=== PATIENT | female | born 1990 | race American Indian/Alaskan Native ===

== ENCOUNTER 2018-07-15 19:47 | Emergency (ER) | payer SELFPAY ==
[~2018-07-15] VITALS: Ht 157.5 cm; Wt 81.6 kg
[2018-07-15 20:20] VITALS: BP_SYST 130
--- NOTE | 2018-07-15 20:20 | NUR ---
Pt placed to ER bed 07, to gown. Pt c/o vaginal spotting x 1 week with mild abdominal cramping. Pt states that she experiences "slightly spotting" one time each night, light pink to light brown in color. Pt states that she is and was seen by OB 2 weeks ago, but was unable to determine gestational age. Pt states that her LMP was 06/22/2018. No c/o pain or discomfort at this time.
--- NOTE | 2018-07-15 20:30 | NUR ---
Dr. Carrion at bedside.
[2018-07-15 21:16] LABS: BASOPHILS % (AUTO) 0.4 % (0.0-2.0); EOSINOPHILS # (AUTO) 0.1 K/uL (0.0-0.4); EOSINOPHILS % (AUTO) 0.6 % (0.0-4.0); HEMATOCRIT 38.4 % (36-48); HEMOGLOBIN 12.7 g/dL (12.0-16.0); LYMPHOCYTES # (AUTO) 1.6 K/uL (1.0-5.5); MEAN CORPUSCULAR HEMOGLOBIN 29 pg (27-31); MEAN CORPUSCULAR HGB CONC 33 % (32-36); MEAN CORPUSCULAR VOLUME 88 fL (79.0-98.0); MONOCYTES # (AUTO) 0.6 K/uL (0.0-1.0); MONOCYTES % (AUTO) 6.5 % (1.7-9.3); NEUTROPHILS # (AUTO) 7.2 K/uL (1.8-7.7); NEUTROPHILS % (AUTO) 75.5 % (40.0-70.0); PLATELET COUNT (AUTO) 324 K/uL (130-430); RED BLOOD CELL COUNT(AUTO) 4.36 MIL/uL (4.2-6.2); RED CELL DISTRIBUTION WIDTH 15.2 % (9.0-15.0); WHITE BLOOD COUNT (AUTO) 9.5 K/uL (4.8-10.8)
[2018-07-15 21:21] LABS: PROTHROMBIN TIME 10.3 SECS (9.5-12.5)
--- NOTE | 2018-07-15 22:55 | NUR ---
Pt returns from [facility] No needs verbalized at this time.
[2018-07-16] VITALS: BP_SYST 130
--- NOTE | 2018-07-16 | NUR ---
0000 - Patient given written and verbal discharge instructions and verbalizes understanding. ER MD discussed with patient the results and treatment provided. Patient in stable condition. ID arm band removed. Rx of keflex given. Patient educated on pain management and to follow up with PMD. Opportunity for questions provided and answered. Medication side effect fact sheet provided.
== END 2018-07-16 | disposition home or self-care (01) ==
LOC: SED 19:47
DX: O23.41 Unspecified infection of urinary tract in pregnancy, first trimester (principal); R03.0 Elevated blood-pressure reading, without diagnosis of hypertension; Z3A.01 Less than 8 weeks gestation of pregnancy
CPT/HCPCS: 36415; 76801; 76817; 81002; 81025; 84702-TC; 85025; 85610-TC; 99284

== ENCOUNTER 2018-07-21 11:05 | Emergency (ER) | payer SELFPAY ==
[~2018-07-21] VITALS: Ht 157.5 cm; Wt 83.9 kg
[2018-07-21 11:13] VITALS: BP_SYST 134
[2018-07-21 12:06] LABS: BASOPHILS % (AUTO) 0.5 % (0.0-2.0); EOSINOPHILS # (AUTO) 0.1 K/uL (0.0-0.4); EOSINOPHILS % (AUTO) 1.6 % (0.0-4.0); HEMATOCRIT 36.2 % (36-48); HEMOGLOBIN 12.1 g/dL (12.0-16.0); LYMPHOCYTES # (AUTO) 1.2 K/uL (1.0-5.5); MEAN CORPUSCULAR HEMOGLOBIN 29 pg (27-31); MEAN CORPUSCULAR HGB CONC 33 % (32-36); MEAN CORPUSCULAR VOLUME 88 fL (79.0-98.0); MONOCYTES # (AUTO) 0.5 K/uL (0.0-1.0); MONOCYTES % (AUTO) 7.4 % (1.7-9.3); NEUTROPHILS # (AUTO) 5.4 K/uL (1.8-7.7); NEUTROPHILS % (AUTO) 74.5 % (40.0-70.0); PLATELET COUNT (AUTO) 297 K/uL (130-430); RED BLOOD CELL COUNT(AUTO) 4.13 MIL/uL (4.2-6.2); WHITE BLOOD COUNT (AUTO) 7.2 K/uL (4.8-10.8)
[2018-07-21 15:34] VITALS: BP_SYST 129
== END 2018-07-21 15:32 | disposition home or self-care (01) ==
LOC: SED 11:05
DX: O20.0 Threatened abortion (principal); R03.0 Elevated blood-pressure reading, without diagnosis of hypertension; Z3A.01 Less than 8 weeks gestation of pregnancy; Z91.013 Allergy to seafood
CPT/HCPCS: 36415; 76801; 76817; 84702-TC; 85025; 86900; 86901; 99284

== ENCOUNTER 2018-07-25 22:18 | Emergency (ER) | payer SELFPAY ==
[~2018-07-25] VITALS: Ht 154.9 cm; Wt 81.6 kg
[2018-07-25 22:27] VITALS: BP_SYST 125
[2018-07-25 23:08] LABS: BASOPHILS % (AUTO) 0.4 % (0.0-2.0); EOSINOPHILS # (AUTO) 0.1 K/uL (0.0-0.4); EOSINOPHILS % (AUTO) 1.1 % (0.0-4.0); HEMATOCRIT 36.3 % (36-48); HEMOGLOBIN 12.2 g/dL (12.0-16.0); LYMPHOCYTES # (AUTO) 1.8 K/uL (1.0-5.5); LYMPHOCYTES % (AUTO) 19.2 % (20.5-51.5); MEAN CORPUSCULAR HEMOGLOBIN 30 pg (27-31); MEAN CORPUSCULAR HGB CONC 34 % (32-36); MEAN CORPUSCULAR VOLUME 88 fL (79.0-98.0); MONOCYTES # (AUTO) 0.6 K/uL (0.0-1.0); MONOCYTES % (AUTO) 6.8 % (1.7-9.3); NEUTROPHILS # (AUTO) 6.7 K/uL (1.8-7.7); NEUTROPHILS % (AUTO) 72.5 % (40.0-70.0); PLATELET COUNT (AUTO) 315 K/uL (130-430); RED BLOOD CELL COUNT(AUTO) 4.13 MIL/uL (4.2-6.2); RED CELL DISTRIBUTION WIDTH 15.1 % (9.0-15.0); WHITE BLOOD COUNT (AUTO) 9.2 K/uL (4.8-10.8)
--- NOTE | 2018-07-25 23:18 | NUR ---
Patient to ER bed 06 to gown for evaluation. Side rails up. Report given to Rhonda RADER.
--- NOTE | 2018-07-25 23:20 | NUR ---
Patient AOx4, ambulatory, presents to ER with complaint of intermittent pink vaginal spotting x 2 weeks. Patient states last menstrual period 06/22/18. Patient states she thinks she is having a miscarriage because she was passing blood clots yesterday. Patient states blood type is O negative. 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 No other symptoms or complaints. Boyfriend at bedside.
--- NOTE | 2018-07-25 23:22 | NUR ---
ER at bedside examining patient.
[2018-07-25 23:26] LABS: CALCIUM 8.8 mg/dL (8.4-11.0); CREATININE 0.65 mg/dL (0.55-1.30); POTASSIUM 3.9 mmol/L (3.5-5.1)
[2018-07-25 23:52] LABS: ALBUMIN 3.5 g/dL (3.4-4.8); TOTAL BILIRUBIN 0.3 mg/dL (0.0-1.0)
--- NOTE | 2018-07-26 00:34 | NUR ---
internet technology manager at bedside for ultrasound.
[2018-07-26 01:52] VITALS: BP_SYST 118
--- NOTE | 2018-07-26 01:52 | NUR ---
Patient given written and verbal discharge instructions and verbalizes understanding. ER MD discussed with patient the results and treatment provided. Patient in stable condition. ID arm band removed. No Rx given. Patient educated on pain management and to follow up with PMD. Pain Scale 0/10. Opportunity for questions provided and answered.
== END 2018-07-26 01:52 | disposition home or self-care (01) ==
LOC: SED 22:18
DX: O03.9 Complete or unspecified spontaneous abortion without complication (principal); Z3A.01 Less than 8 weeks gestation of pregnancy
CPT/HCPCS: 36415; 76830-TC; 76857; 80053; 81025; 84702-TC; 85025; 86901; 99284

== ENCOUNTER 2018-09-14 02:44 | Emergency (ER) | payer SELFPAY ==
[~2018-09-14] VITALS: Ht 160 cm; Wt 86.2 kg
[2018-09-14 02:50] VITALS: BP_SYST 141
--- NOTE | 2018-09-14 02:50 | NUR ---
Patient to ER bed 6 for evaluation. Side rails up. Report given to Kinga.
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
--- NOTE | 2018-09-14 03:47 | NUR ---
ILANA Rouse at bedside examining patient.
--- NOTE | 2018-09-14 03:53 | NUR ---
Visual acuity test performed per MD order. 20/20 vision in bilateral eyes.
--- NOTE | 2018-09-14 03:54 | NUR ---
PT reported she refused CT scan. ER MD Dr. Bran at bedside.
--- NOTE | 2018-09-14 03:56 | NUR ---
PT reported she refused CT scan. ER MD Dr. Bran at bedside.
--- NOTE | 2018-09-14 03:56 | NUR ---
Note jeff in EDM - 09/14/18 at 0411 by [email or web address] PT reported she refused CT scan. ILANA Bran at bedside.
[2018-09-14] MEDS ORDERED: BACITRACIN 1 GM OINT TP ONE (04:00)
[2018-09-14 04:05] VITALS: BP_SYST 141
--- NOTE | 2018-09-14 04:05 | NUR ---
Pt signed form of refusal for CT facial. Placed in chart.
--- NOTE | 2018-09-14 04:05 | NUR ---
Patient given written and verbal discharge instructions and verbalizes understanding. ER MD Dr. Bran discussed with patient the results and treatment provided. Patient in stable condition. ID arm band removed. Rx of ibuprofen given. Patient educated on pain management and to follow up with PMD. Pain Scale 2/10, tolerable for pt. Pt able to ambulate with steady gait, no signs of acute distress. Opportunity for questions provided and answered. Medication side effect fact sheet provided.
== END 2018-09-14 04:05 | disposition left against medical advice (07) ==
LOC: SED 02:44
DX: S00.12XA Contusion of left eyelid and periocular area, initial encounter (principal); S00.31XA Abrasion of nose, initial encounter; J45.909 Unspecified asthma, uncomplicated; Z91.013 Allergy to seafood; W22.8XXA Striking against or struck by other objects, initial encounter; Y93.89 Activity, other specified; Y92.89 Other specified places as the place of occurrence of the external cause; Y99.8 Other external cause status
CPT/HCPCS: 99282

== ENCOUNTER 2018-09-30 18:03 | Emergency (ER) | payer SELFPAY ==
[~2018-09-30] VITALS: Ht 157.5 cm; Wt 81.6 kg
[2018-09-30 18:21] VITALS: BP_SYST 148
--- NOTE | 2018-09-30 19:28 | NUR ---
Patient to ER bed 4 to gown for evaluation. Side rails up. Report given to DIOR Noriega.
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
--- NOTE | 2018-09-30 19:55 | NUR ---
ER at bedside examining patient.
[2018-09-30] MEDS ORDERED: ACETAMINOPHEN 325 MG TABLET PO ONE (20:00)
[2018-09-30 20:25] LABS: BASOPHILS % (AUTO) 0.5 % (0.0-2.0); EOSINOPHILS # (AUTO) 0.1 K/uL (0.0-0.4); EOSINOPHILS % (AUTO) 0.7 % (0.0-4.0); HEMATOCRIT 37.1 % (36-48); HEMOGLOBIN 12.3 g/dL (12.0-16.0); LYMPHOCYTES # (AUTO) 1.6 K/uL (1.0-5.5); LYMPHOCYTES % (AUTO) 17.7 % (20.5-51.5); MEAN CORPUSCULAR HEMOGLOBIN 29 pg (27-31); MEAN CORPUSCULAR HGB CONC 33 % (32-36); MEAN CORPUSCULAR VOLUME 86 fL (79.0-98.0); MONOCYTES # (AUTO) 0.5 K/uL (0.0-1.0); MONOCYTES % (AUTO) 5.4 % (1.7-9.3); NEUTROPHILS # (AUTO) 6.8 K/uL (1.8-7.7); NEUTROPHILS % (AUTO) 75.7 % (40.0-70.0); PLATELET COUNT (AUTO) 340 K/uL (130-430); WHITE BLOOD COUNT (AUTO) 8.9 K/uL (4.8-10.8)
[2018-09-30 21:56] VITALS: BP_SYST 125
--- NOTE | 2018-09-30 21:56 | NUR ---
Patient given written and verbal discharge instructions and verbalizes understanding. ER DR RENEE PATEL discussed with patient the results and treatment provided. Patient in stable condition. ID arm band removed. Patient educated on pain management and to follow up with PMD. Pain Scale . Opportunity for questions provided and answered. Medication side effect fact sheet provided.
== END 2018-09-30 21:56 | disposition home or self-care (01) ==
LOC: SED 18:03
DX: O26.891 Other specified pregnancy related conditions, first trimester (principal); R10.2 Pelvic and perineal pain; J45.909 Unspecified asthma, uncomplicated; Z91.013 Allergy to seafood; Z3A.01 Less than 8 weeks gestation of pregnancy
CPT/HCPCS: 36415; 76801; 76817; 84702-TC; 85025; 99284